=== PATIENT | male | born 1975 | race Caucasian/White ===

== ENCOUNTER 2017-02-09 06:28 | Day surgery (SDC) | payer BC, OTHER ==
[~2017-02-09] VITALS: Ht 180.3 cm; Wt 168.9 kg
--- NOTE | ~2017-02-09 | O ---
[facility] [place] [address] OPERATIVE REPORT Name: JONAS JUAREZ Room #: 150-4 [facility] M..#: [id number] Admission: 02/09/17 Attend Phys: Andrew Hoffman MD Discharge: Date of : 79 Report #: [id number] THIS REPORT FOR: //name// CC: FAM unknown Andrew Hoffman DATE OF SERVICE: 02/09/2017 PREOPERATIVE DIAGNOSIS: Right posterior tibial tendon dysfunction, stage II. POSTOPERATIVE DIAGNOSIS: Right posterior tibial tendon dysfunction, stage II. PROCEDURES: 1. Right posterior tibial tendon reconstruction with flexor digitorum longus tendon transfer. 2. Right medializing calcaneal osteotomy. SURGEON: Andrew Hoffman MD DATA COMMUNICATIONS ENGINEER: CONI Huerta critical for positioning and safe performance of the procedure. ANESTHESIA: General. ESTIMATED BLOOD LOSS: Minimal. DRAINS: None. TOURNIQUET TIME: One hour. DESCRIPTION OF PROCEDURE: The patient brought to the operating room where he was placed under general anesthesia. Once under adequate general anesthesia, his right lower extremity was prepped and draped in sterile manner. The extremity was elevated, exsanguinated, tourniquet placed to 300 mmHg. A lateral incision overlying the posterior tuberosity of calcaneus was made. This was dissected down through the soft tissue to the lateral wall of the calcaneus. The periosteum was elevated off the bone. Hohmann retractors were placed and a sagittal saw was used to transect the tuberosity. This was subsequently translated medially approximately 1.5 cm and fixed into place with a single 7.3 mm cannulated screw, placed under fluoroscopic guidance. Excellent fixation and alignment was achieved and verified under fluoroscopy. The bone tamp was then utilized to tamp the lateral wall of the calcaneus down. The wound was then irrigated copiously and closed with 2-0 Vicryl in subcutaneous tissues and shavonne for the skin. We then proceeded medially and then medial incision approximately 6 cm in length was then made overlying the posterior tibial tendon. This is at its insertion to the tarsal navicular. The tendon sheath [facility] [address] [place] [address] OPERATIVE REPORT Name: JONAS JUAREZ Room #: 150-4 [facility] M..#: [id number] Admission: 02/09/17 Attend Phys: Andrew Hoffman MD Discharge: Date of : 79 Report #: [id number] was then incised exposing the posterior tibial tendon and floor of the posterior tibial tendon sheath was opened exposing the flexor digitorum longus tendon. This was dissected down through the soft tissue to the Master Knot of [place] where it was incised and brought out of the medial portion of the wound. This tendon was then tagged and a drill hole was placed through the tarsal navicular with a suture passer used to then pass the tendon through this drill hole. The tendon was then fixed into place with the Bio-Tenodesis screw. This is a 5.5 mm screw. Excellent fixation was achieved. This was reinforced with #2 FiberWire. The wound was irrigated copiously. A #2 FiberWire was used to close the tendon sheath, 2-0 Vicryl in subcutaneous tissues and then shavonne were used for the skin. The wounds were dressed with Xeroform, 4 x 4s, and sterile soft compressive dressing with a short leg cast with the foot and inversion was then placed. Tourniquet was let down at 1 hour. Toes were pink and warm with good capillary refill. There were no complications from the procedure. The patient tolerated the procedure well and went to recovery room without incident. By: [id number] Andrew Hoffman MD /nt
[~2017-02-09 06:28] MED LIST: AMLODIPINE BESY10 MG PO; HYDRALAZINE HC100 MG PO; HYDROCHLOROTHIA25 M2 PO; LABETALOL HCL200 MG PO; LOSARTAN POTAS100 MG PO
[2017-02-09 09:18] VITALS: BP 203/110
[2017-02-09 09:54] LABS: CALCIUM 8.8 mg/dL (8.5-10.1); CREATININE 1.3 mg/dL (0.7-1.3); POTASSIUM 3.7 mmol/L (3.5-5.1)
[2017-02-09] MEDS ORDERED: ASPIRIN325 PO (11:43)
[2017-02-09] MEDS ORDERED: PERCOCET 7.5-31 EACH PO (11:43)
[2017-02-09 12:02] VITALS: BP 203/110
== END 2017-02-09 14:40 | disposition home or self-care (01) ==
LOC: OR 06:28 → TBA 06:28 → OR 12:41
PROVIDERS: Orthopaedic Surgery Foot and Ankle Surgery
DX: M76.821 Posterior tibial tendinitis, right leg (principal); M21.41 Flat foot [pes planus] (acquired), right foot; I10 Essential (primary) hypertension; K21.9 Gastro-esophageal reflux disease without esophagitis; F17.210 Nicotine dependence, cigarettes, uncomplicated; Z79.82 Long term (current) use of aspirin; Z79.899 Other long term (current) drug therapy
CPT/HCPCS: 50010; 50101; 50386; 50692; 50951; 51412; 52120; 53400; 53404; 55430; 56524; 57091; 62110; 62900; 70005

== ENCOUNTER 2017-09-04 05:29 | Day surgery (SDC) | payer BC, OTHER ==
[~2017-09-04] VITALS: Ht 180.3 cm; Wt 173.3 kg
--- NOTE | ~2017-09-04 | O ---
[facility] [place] [address] OPERATIVE REPORT Name: JONAS JUAREZ Room #: DEP [facility].#: [id number] Admission: 09/04/17 Attend Phys: Andrew Hoffman MD Discharge: 09/04/17 Date of : 79 Report #: [id number] THIS REPORT FOR: //name// CC: FAM unknown Andrew Hoffman DATE OF SERVICE: 09/04/2017 PREOPERATIVE DIAGNOSES: 1. Right foot posterior tibial tendon dysfunction. 2. Status post flexor digitorum longus transfer to the posterior tip. POSTOPERATIVE DIAGNOSES: 1. Right foot posterior tibial tendon dysfunction. 2. Status post flexor digitorum longus transfer to the posterior tip. PROCEDURE: Right foot subtalar arthrodesis. SURGEON: Andrew Hoffman MD MANAGER LAUNDRY: Yahaira Hare PA-C ANESTHESIA: General. ESTIMATED BLOOD LOSS: Minimal. DRAINS: No drains. TOURNIQUET TIME: One hour. DESCRIPTION OF PROCEDURE: The patient brought to the operating room where he was placed under general anesthesia. Once under adequate general anesthesia, his right lower extremity was prepped and draped in sterile manner. The extremity was elevated, exsanguinated and tourniquet placed to 300 mmHg. A medial incision approximately 8 cm in length was then made over the posterior tibial tendon. Dissection was carried down to the posterior tibial tendon sheath and the insertion of the posterior tibial tendon and the reinforced tendon with the flexor digitorum longus was then made. Exposure of the repair was then achieved and subsequent debridement achieved as well. There was significant scar tissue and abundant inflammatory fluid did come from the wound. This was then debrided with tenotomy scissors. The repair itself appeared to be stable. We then proceeded laterally and a lateral incision over the sinus tarsi was then made. This dissected down through soft tissue to the extensor digitorum brevis which was then elevated off of the subtalar joint and exposure of the subtalar joint was then achieved with use of a rongeur to remove the ligaments and the bifurcate ligament and subsequently the cartilage of the [address] [address] OPERATIVE REPORT Name: JONAS JUAREZ Room #: DEP [facility] M.R.#: [id number] Admission: 09/04/17 Attend Phys: Andrew Hoffman MD Discharge: 09/04/17 Date of : 79 Report #: [id number] subtalar joint was able to be exposed with a laminar restuarant crew worker. Curettes, osteotomes and a rongeur were then utilized to prepare the joint for fixation. Once complete and good bleeding subchondral bone was achieved, the demineralized bone matrix allograft was placed into the joint. Subsequent fixation was then achieved through a separate dorsal incision at the dorsum of the talus with fixation with two 7.3 mm cannulated screws placed across the posterior facet of the subtalar joint. Excellent fixation and alignment was achieved in this manner. The wounds were irrigated copiously and closed with 0 Ethibond in the deep retinacular layers and 2-0 Vicryl in the subcutaneous tissues. [place] were used for the skin. The wounds were dressed with Xeroform, 4 x 4s, and sterile soft compressive dressing was placed. Tourniquet was let down at approximately 1 hour. Toes were pink and warm with good capillary refill. There were no complications from the procedure. The patient tolerated the procedure well and went to the recovery room without incident. He was placed into a short leg cast in the operative suite. <ELECTRONICALLY SIGNED> By: Andrew Hoffman MD 09/07/17 2230 [id number] Andrew Hoffman MD /nt
[~2017-09-04 05:29] MED LIST changes: +ASPIRIN325 PO; +HYDROCODONE-AP1 EAC6 PO; +IBUPROFEN 200200 M1 PO; +MOBIC7.5 MG PO; +PERCOCET 7.5-31 EACH PO
[2017-09-04 10:49] LABS: CREATININE 1.2 mg/dL (0.7-1.3); POTASSIUM 3.9 mmol/L (3.5-5.1)
[2017-09-04 11:55] VITALS: BP 156/110
[2017-09-04] MEDS ORDERED: PERCOCET 7.5-31 EACH PO (14:00)
[2017-09-04] MEDS ORDERED: ASPIRIN325 PO (14:01)
[2017-09-04 14:26] VITALS: BP 156/110
[2017-09-04 14:27] VITALS: BP 156/110
== END 2017-09-04 16:51 | disposition home or self-care (01) ==
LOC: OR 05:29 → TBA 06:11 → OR 11:11
PROVIDERS: Orthopaedic Surgery Foot and Ankle Surgery
DX: M76.821 Posterior tibial tendinitis, right leg (principal); I10 Essential (primary) hypertension; K21.9 Gastro-esophageal reflux disease without esophagitis; F17.210 Nicotine dependence, cigarettes, uncomplicated; Z79.899 Other long term (current) drug therapy; Z98.890 Other specified postprocedural states; Z79.82 Long term (current) use of aspirin; Z79.891 Long term (current) use of opiate analgesic
CPT/HCPCS: 50010; 50101; 50386; 51014; 51412; 51740; 53023; 53400; 53404; 56524; 56525; 57091; 62110; 62900; 64018; 64031; 64042; 70005